=== PATIENT | male | born 1955 | race Two or more races ===

== ENCOUNTER 2022-11-30 05:55 | Day surgery (SDC) | payer OTHER ==
[~2022-11-30] VITALS: Ht 170.2 cm; Wt 98.4 kg
[~2022-11-30 05:55] MED LIST: ALTACE10 MG PO
[2022-11-30] MEDS ORDERED: OXYC1TAB9 PO (09:02)
== END 2022-11-30 14:55 | disposition home or self-care (01) ==
LOC: CIR.AMB 05:55
PROVIDERS: ATTEND Surgery
DX: K60.3 Anal fistula (principal); K62.89 Other specified diseases of anus and rectum; K60.1 Chronic anal fissure; K57.30 Diverticulosis of large intestine without perforation or abscess without bleeding; I10 Essential (primary) hypertension; Z20.822 Contact with and (suspected) exposure to COVID-19

== ENCOUNTER 2023-03-29 07:29 | Day surgery (SDC) | payer OTHER ==
[~2023-03-29] VITALS: Ht 170.2 cm; Wt 96.2 kg
[~2023-03-29 07:29] MED LIST changes: +OXYC1TAB9 PO
[2023-03-29] MEDS ORDERED: CEFTRIAXONE SODIUM 2,000 MG VIAL ONE (09:37)
[2023-03-29] MEDS ORDERED: METRONIDAZOLE/SODIUM CHLORIDE 500 MG/100 ML PIGGYBACK IV ONE (09:37)
[2023-03-29] MEDS ORDERED: BUPIVACAINE HCL/PF 0.5% 30ML ML ONE (12:29)
[2023-03-29] MEDS ORDERED: LIDOCAINE HCL 1%/Epi 20ML VIAL IJ ONE (12:30)
[2023-03-29] MEDS ORDERED: DIBUCAINE 30 GM TUBE ONE (12:30)
[2023-03-29] MEDS ORDERED: HEMOSTATIC MATRIX 1 KIT KIT TOP ONE (12:30)
[2023-03-29] MEDS ORDERED: POVIDONE-IODINE 118 ML BOTT TOP ONE (12:31)
[2023-03-29] MEDS ORDERED: METRONIDAZOLE/SODIUM CHLORIDE 500 MG/100 ML PIGGYBACK IV SCH (13:15)
[2023-03-29] MEDS ORDERED: CEFTRIAXONE SODIUM 2,000 MG VIAL IV SCH (13:15)
[2023-03-29] MEDS ORDERED: DIBUCAINE 30 GM TUBE RECTAL SCH (13:15)
[2023-03-29] MEDS ORDERED: HEMOSTATIC MATRIX 1 KIT KIT TOP SCH (13:15)
[2023-03-29] MEDS ORDERED: LIDOCAINE HCL/EPINEPHRINE 10 ML VIAL IJ SCH (13:15)
[2023-03-29] MEDS ORDERED: POVIDONE-IODINE 118 ML BOTT TOP SCH (13:15)
[2023-03-29] MEDS ORDERED: BUPIVACAINE HCL/Mpf 0.5% 10ML VIAL IV SCH (13:15)
[2023-03-29] MEDS ORDERED: OXYC1TAB9 PO (13:55)
[2023-03-29] MEDS ORDERED: TAMSULOSIN HCL 0.4 MG CAP PO ONE ×2 (14:00→17:30)
== END 2023-03-29 17:55 | disposition home or self-care (01) ==
LOC: CIR.AMB 07:29
PROVIDERS: ATTEND Surgery
DX: K60.3 Anal fistula (principal)